=== PATIENT | female | born 1940 | race Caucasian/White ===

== ENCOUNTER → 2016-12-29 | Outpatient (CLI) | payer MEDICARE ==
--- NOTE | 2016-12-29 15:01 | WOMENS IMAGING REPORT ---
EXAM DESCRIPTION: BILAT SCREENING MAMMO W/CAD COMPLETED DATE/TIME: 12/29/2016 1:37 pm REASON FOR STUDY: Z12.31, ROUTINE SCREENING MAMMO Z12.31 ENCNTR SCREEN MAMMOGRAM FOR MALIGNANT NEOP LASM OF ADELE COMPARISON: Annual priors dating back to June 2011. TECHNIQUE: Standard craniocaudal and mediolateral oblique views of each breast recorded using digita l acquisition. LIMITATIONS: None. FINDINGS: No masses, calcifications or architectural distortion. No areas of suspicion. Read with the assistance of CAD. .[facility] - R2 Cenova Version 1.3 .[facility] Imaging - R2 Cenova Version 1.3 .[facility] Imaging - R2 Cenova Version 2.4 .[facility] - R2 Cenova Version 2.4 .[facility] - R2 Cut File Clerk Version 9.2 IMPRESSION: NORMAL MAMMOGRAM. BIRADS 1. BREAST DENSITY: b. There are scattered areas of fibroglandular density. BIRAD: 1 NEGATIVE RECOMMENDATION: ROUTINE SCREENING COMMENT: The patient has been notified of the results by letter per MQSA requirements. Additional no tification policies are in place for contacting patient with suspicious or incomplete findings. Quality ID #225: The [employer] recommends an annual screening mammogram for women aged 40 years or over. This facility utilizes a reminder system to ensure that all patients receive reminder letters, and/or direct phone calls for appointments. This includes reminders for routine scr eening mammograms, diagnostic mammograms, or other Breast Imaging Interventions when appropriate. Th is patient will be placed in the appropriate reminder system. The [employer] (ACR) has developed recommendations for screening MRI of the breast s in certain patient populations, to be used in conjunction with mammography. Breast MRI surveillanc e may be appropriate for women with more than 20% lifetime risk of developing breast cancer as deter mined by genetic testing, significant family history of the disease, or history of mantle radiation f or Hodgkins Disease. ACR Practice Guidelines 2008. TECHNICAL DOCUMENTATION: FINDING NUMBER: (1) ASSESSMENT: (1) JOB ID: [id number] [employer]- All Rights Reserved
== END ==
LOC: WI 13:16
PROVIDERS: ATTEND Family Medicine
DX: Z12.31 Encounter for screening mammogram for malignant neoplasm of breast (principal)
CPT/HCPCS: 77067; G0202

== ENCOUNTER → 2018-01-05 | Outpatient (CLI) | payer MEDICARE, OTHER ==
--- NOTE | 2018-01-08 08:52 | WOMENS IMAGING REPORT ---
EXAM DESCRIPTION: 3D SCREENING MAMMO BILAT COMPLETED DATE/TIME: 01/05/2018 1:37 pm REASON FOR STUDY: BILATERAL SCREENING MAMM 3D/Z12.31 Z12.31 ENCNTR SCREEN MAMMOGRAM FOR MALIGNANT N EOPLASM OF ADELE COMPARISON: 2006 to 2016 TECHNIQUE: Standard craniocaudal and mediolateral oblique views of each breast recorded using digita l acquisition and breast tomosynthesis. LIMITATIONS: None. FINDINGS: No masses, calcifications or architectural distortion. No areas of suspicion. Read with the assistance of CAD. .[facility] - R2 Cenova Version 1.3 .[facility] Imaging - R2 Cenova Version 1.3 .[facility] Imaging - R2 Cenova Version 2.4 .[facility] - R2 Cenova Version 2.4 .[facility] - R2 Analytical Research Program Manager Version 9.2 IMPRESSION: NORMAL MAMMOGRAM. BIRADS 1. BREAST DENSITY: b. There are scattered areas of fibroglandular density. BIRAD: 1 NEGATIVE RECOMMENDATION: ROUTINE SCREENING COMMENT: The patient has been notified of the results by letter per SA requirements. Additional no tification policies are in place for contacting patient with suspicious or incomplete findings. Quality ID #225: The [employer] recommends an annual screening mammogram for women aged 40 years or over. This facility utilizes a reminder system to ensure that all patients receive reminder letters, and/or direct phone calls for appointments. This includes reminders for routine scr eening mammograms, diagnostic mammograms, or other Breast Imaging Interventions when appropriate. Th is patient will be placed in the appropriate reminder system. The [employer] (ACR) has developed recommendations for screening MRI of the breast s in certain patient populations, to be used in conjunction with mammography. Breast MRI surveillanc e may be appropriate for women with more than 20% lifetime risk of developing breast cancer as deter mined by genetic testing, significant family history of the disease, or history of mantle radiation f or Hodgkins Disease. ACR Practice Guidelines 2008. DBT Technology DBT is a type of tomographic mammography. With conventional mammography, overlapping breast tissue ma y make lesions difficult to detect, even with good compression. DBT uses an x-ray tube that rotates a round the breast, taking images at different angles. These images are then combined to create thin sl ices of the breast that the radiologist can view as a 3D reconstruction. The [employer] unit can perform full-field digital mammograms (2D imaging); or DBT (3D imaging); or both, in a combination mode that quickly performs both the mammogram and the tomosynthesis scan while the breast is still compressed. PQRS 6045F: Fluoroscopic imaging is not utilized for breast tomosynthesis. TECHNICAL DOCUMENTATION: FINDING NUMBER: (1) ASSESSMENT: (1) JOB ID: [id number] [employer]- All Rights Reserved Reading location - IP/workstation name: [email or web address]
== END ==
LOC: WI 13:00
PROVIDERS: ATTEND Physician Assistant
DX: Z12.31 Encounter for screening mammogram for malignant neoplasm of breast (principal)
CPT/HCPCS: 77063; 77067

== ENCOUNTER 2018-08-21 10:24 | Emergency (ER) | payer MEDICARE, OTHER ==
[2018-08-21 12:06] LABS: ABSOLUTE BASOPHILS # (AUTO) 0.1 10^3/uL (0.0-0.2); ABSOLUTE EOSINOPHILS # (AUTO) 0.1 10^3/uL (0.0-0.6); ABSOLUTE LYMPHOCYTES (AUTO) 0.7 10^3/uL (0.5-4.7); ABSOLUTE MONOCYTES (AUTO) 0.6 10^3/uL (0.1-1.4); ABSOLUTE NEUT (AUTO) 8.3 10^3/uL (1.7-8.2); BASOPHILS % (AUTO) 0.7 % (0-2); EOSINOPHILS % (AUTO) 1.1 % (0-6); HEMOGLOBIN 15.2 g/dL (12.0-15.5); LYMPHOCYTES % (AUTO) 7.4 % (13-45); MEAN CORPUSCULAR HEMOGLOBIN 29.4 pg (27.0-33.4); MEAN CORPUSCULAR HGB CONC 33.7 g/dL (32.0-36.0); MEAN CORPUSCULAR VOLUME 87 fl (80-97); MONOCYTES % (AUTO) 6.4 % (3-13); PLATELET COUNT 217 10^3/uL (150-450); RED BLOOD COUNT 5.16 10^6/uL (3.72-5.28); SEGMENTED NEUTROPHILS % (AUTO) 84.4 % (42-78); TOTAL CELLS COUNTED % (AUTO) 100 %; WHITE BLOOD COUNT 9.8 10^3/uL (4.0-10.5)
[2018-08-21 12:14] LABS: INTERNATIONAL RATION (INR) 0.94
[2018-08-21 12:15] LABS: PARTIAL THROMBOPLASTIN TIME 28.9 SEC (23.5-35.8)
[2018-08-21 12:17] LABS: AMORPHOUS SEDIMENT,URINE TRACE /HPF; APPEARANCE,URINE TURBID; BILIRUBIN,URINE NEGATIVE (NEGATIVE); GLUCOSE, URINE NEGATIVE (NEGATIVE); KETONES,URINE NEGATIVE (NEGATIVE); LEUKOCYTE ESTERASE,URINE NEGATIVE (NEGATIVE); NITRITE,URINE NEGATIVE (NEGATIVE); PROTEIN,URINE NEGATIVE (NEGATIVE); URINE SPECIFIC GRAVITY 1.024; UROBILINOGEN,URINE NEGATIVE mg/dL (<2.0)
[2018-08-21 12:19] LABS: COLOR,URINE YELLOW
[2018-08-21 12:34] LABS: ALANINE AMINOTRANSFERASE 36 U/L (9-52); ALBUMIN 4.4 g/dL (3.5-5.0); ALKALINE PHOSPHATASE 92 U/L (38-126); ANION GAP 10 (5-19); ASPARTATE AMINO TRANSFERASE 32 U/L (14-36); BILIRUBIN,DIRECT 0.1 mg/dL (0.0-0.4); BILIRUBIN,TOTAL 0.4 mg/dL (0.2-1.3); BLOOD UREA NITROGEN 18 mg/dL (7-20); CALCIUM 9.7 mg/dL (8.4-10.2); CARBON DIOXIDE 29 mmol/L (22-30); CHLORIDE 104 mmol/L (98-107); GLUCOSE 90 mg/dL (75-110); POTASSIUM 4.9 mmol/L (3.6-5.0); SODIUM 142.8 mmol/L (137-145); TOTAL PROTEIN 7.1 g/dL (6.3-8.2)
--- NOTE | 2018-08-21 13:33 | RADIOLOGY REPORT (SQ) ---
EXAM DESCRIPTION: CT HEAD WITHOUT COMPLETED DATE/TIME: 08/21/2018 1:15 pm REASON FOR STUDY: fall, hit head and ribs COMPARISON: None. TECHNIQUE: Axial images acquired through the brain without intravenous contrast. Images reviewed wi th bone, brain and subdural windows. Additional sagittal and coronal reconstructions were generated. Images stored on PACS. All CT scanners at this facility use dose modulation, iterative reconstruction, and/or weight based d osing when appropriate to reduce radiation dose to as low as reasonably achievable (ALARA). [facility]: Dose Right [facility]: CareDose [facility]: Dose Right [facility]: Teradose 4D [facility]: Smart [employer] RADIATION DOSE: CT Rad equipment meets quality standard of care and radiation dose reduction techniq ues were employed. CTDIvol: 53.2 mGy. DLP: 964 mGy-cm. mGy. LIMITATIONS: None. FINDINGS: VENTRICLES: Prominent. CEREBRUM: No masses. No hemorrhage. No midline shift. Areas of low density in the white matter mos t likely due to chronic micro-vascular ischemic change. No evidence for acute infarction. CEREBELLUM: No masses. No hemorrhage. No alteration of density. No evidence for acute infarction. EXTRAAXIAL SPACES: No fluid collections. Subcentimeter calcified meningioma right frontal lobe. ORBITS AND GLOBE: No intra- or extraconal masses. Normal contour of globe without masses. CALVARIUM: No fracture. PARANASAL SINUSES: No fluid or mucosal thickening. SOFT TISSUES: No mass or hematoma. OTHER: No other significant finding. IMPRESSION: MILD CHRONIC CHANGES OF ATROPHY AND MICROVASCULAR ISCHEMIA. NO ACUTE PROCESS. EVIDENCE OF ACUTE STROKE: NO. TECHNICAL DOCUMENTATION: JOB ID: [id number] Quality ID # 436: Final reports with documentation of one or more dose reduction techniques (e.g., Au tomated exposure control, adjustment of the mA and/or kV according to patient size, use of iterative reconstruction technique) 2010 [employer]- All Rights Reserved Reading location - IP/workstation name: [email or web address]
--- NOTE | 2018-08-21 13:35 | RADIOLOGY REPORT (SQ) ---
EXAM DESCRIPTION: CT CERVICAL SPINE WITHOUT COMPLETED DATE/TIME: 08/21/2018 1:15 pm REASON FOR STUDY: fall, hit head and ribs COMPARISON: None. TECHNIQUE: Axial images acquired through the cervical spine without intravenous contrast. Images re viewed with lung, soft tissue and bone windows. Reconstructed coronal and sagittal MPR images review ed. Images stored on PACS. All CT scanners at this facility use dose modulation, iterative reconstruction, and/or weight based d osing when appropriate to reduce radiation dose to as low as reasonably achievable (ALARA). [facility]: Dose Right [facility]: CareDose [facility]: Dose Right [facility]: Teradose 4D [facility]: Smart [employer]perts RADIATION DOSE: CT Rad equipment meets quality standard of care and radiation dose reduction techniq ues were employed. CTDIvol: 11.1 mGy. DLP: 209 mGy-cm. mGy. LIMITATIONS: None. FINDINGS: ALIGNMENT: Grade 1 anterolisthesis C4 relative to C5. MINERALIZATION: Normal. VERTEBRAL BODIES: No fractures or dislocation. DISCS: Multilevel disc space narrowing with osteophytes. FACETS, LATERAL MASSES, POSTERIOR ELEMENTS: Facet arthropathy. No fractures. No dislocation. No ac [place] findings. HARDWARE: None in the spine. VISUALIZED RIBS: No fractures. LUNG APICES AND SOFT TISSUES: No significant or acute findings. OTHER: No other significant finding. IMPRESSION: CHRONIC DEGENERATIVE CHANGES. NO ACUTE FINDINGS. TECHNICAL DOCUMENTATION: JOB ID: [id number] Quality ID # [id number]: Final reports with documentation of one or more dose reduction techniques (e.g., Au tomated exposure control, adjustment of the mA and/or kV according to patient size, use of iterative reconstruction technique) 2010 [employer]- All Rights Reserved Reading location - IP/workstation name: [email or web address]
--- NOTE | 2018-08-21 13:38 | RADIOLOGY REPORT (SQ) ---
EXAM DESCRIPTION: CT CHEST WITH COMPLETED DATE/TIME: 08/21/2018 1:15 pm REASON FOR STUDY: fall, hit head and ribs COMPARISON: None. TECHNIQUE: CT scan of the chest performed using helical scanning technique with dynamic intravenous contrast injection. Images reviewed with lung, soft tissue and bone windows. Reconstructed coronal and sagittal MPR and MIP images reviewed. All images stored on PACS. All CT scanners at this facility use dose modulation, iterative reconstruction, and/or weight based d osing when appropriate to reduce radiation dose to as low as reasonably achievable (ALARA). [facility]: Dose Right [facility]: CareDose [facility]: Dose Right [facility]: Teradose 4D [facility]: Smart [employer] CONTRAST TYPE AND DOSE: See separate report of the same date. RENAL FUNCTION: See separate report of the same date. RADIATION DOSE: CT Rad equipment meets quality standard of care and radiation dose reduction techniq ues were employed. CTDIvol: 6.3 - 8.8 mGy. DLP: 935 mGy-cm. . LIMITATIONS: Artifact from left shoulder arthroplasty. FINDINGS: LUNGS AND PLEURA: No opacities, nodules, masses. No pneumothorax. No effusions. HILAR AND MEDIASTINAL STRUCTURES: No identified masses or abnormal nodes. HEART AND VASCULAR STRUCTURES: No aneurysm or dissection. No central pulmonary emboli. No pericardi al effusion. HARDWARE: None in the chest. UPPER ABDOMEN: See separate report of the CT of the abdomen. THYROID AND OTHER SOFT TISSUES: No masses. No adenopathy. BONES: Nothing acute. OTHER: No other significant finding. IMPRESSION: No acute findings in the chest. TECHNICAL DOCUMENTATION: JOB ID: [id number] Quality ID # [id number]: Final reports with documentation of one or more dose reduction techniques (e.g., Au tomated exposure control, adjustment of the mA and/or kV according to patient size, use of iterative reconstruction technique) 2010 [employer]- All Rights Reserved Reading location - IP/workstation name: [email or web address]
--- NOTE | 2018-08-21 13:48 | RADIOLOGY REPORT (SQ) ---
EXAM DESCRIPTION: CT ABD/PELVIS WITH IV ONLY COMPLETED DATE/TIME: 08/21/2018 1:15 pm REASON FOR STUDY: fall, hit head and ribs, pain over spleen COMPARISON: None. TECHNIQUE: CT scan of the abdomen and pelvis performed using helical scanning technique with dynamic intravenous contrast injection. No oral contrast. Images reviewed with lung, soft tissue, and bone windows. Reconstructed coronal and sagittal MPR images reviewed. Delayed images for evaluation of the urinary system also acquired. All images stored on PACS. All CT scanners at this facility use dose modulation, iterative reconstruction, and/or weight based d osing when appropriate to reduce radiation dose to as low as reasonably achievable (ALARA). [facility]: Dose Right [facility]: CareDose [facility]: Dose Right [facility]: Teradose 4D [facility]: [employer] CONTRAST TYPE AND DOSE: See separate report of the same date RENAL FUNCTION: See separate report of the same date RADIATION DOSE: . LIMITATIONS: None. FINDINGS: LOWER CHEST: See separate report of the CT of the chest. LIVER: Normal size. No masses. No dilated ducts. SPLEEN: Normal size. No focal lesions. PANCREAS: No masses. No significant calcifications. No adjacent inflammation or peripancreatic fluid collections. Pancreatic duct not dilated. GALLBLADDER: No identified stones by CT criteria. No inflammatory changes to suggest cholecystitis. ADRENAL GLANDS: No significant masses or asymmetry. RIGHT KIDNEY AND URETER: No solid masses. No significant calcifications. No hydronephrosis or hyd roureter. LEFT KIDNEY AND URETER: No solid masses. No significant calcifications. No hydronephrosis or hydr oureter. AORTA AND VESSELS: No aneurysm. RETROPERITONEUM: No retroperitoneal adenopathy, hemorrhage or masses. BOWEL AND PERITONEAL CAVITY: No masses or inflammatory changes. No free fluid or peritoneal masses. APPENDIX: Normal. PELVIS: No mass. No free fluid. Normal bladder. ABDOMINAL WALL: No masses. No hernias. BONES: Nothing acute. OTHER: No other significant finding. IMPRESSION: No acute findings in the abdomen or pelvis. TECHNICAL DOCUMENTATION: JOB ID: [id number] Quality ID # [id number]: Final reports with documentation of one or more dose reduction techniques (e.g., Au tomated exposure control, adjustment of the mA and/or kV according to patient size, use of iterative reconstruction technique) 2010 [employer]- All Rights Reserved Reading location - IP/workstation name: [email or web address]
--- NOTE | 2018-08-21 14:03 | ER Document Report ---
Entered by TREY NICHOLS SCRIBE 08/21/18 1133 Acting as scribe for:ELI GORDON DO ED Medical Screen (RME) - General Chief Complaint: Fall Stated Complaint: FALL Time Seen by Provider: 08/21/18 11:12 Primary Care Provider: ANYI GREEN PA [Primary Care Provider] - Follow up as needed Mode of Arrival: Ambulatory Information source: Patient Notes: Patient is an 78-year-old female presenting to the emergency department complaining of left rib pain secondary a mechanical trip and fall onset yesterday. Patient states that she was outside when she fell backwards off a single step step. She states she proceeded to her left ribs and the left side of her head. She states her rib pain is exacerbated with breathing and movement. She denies any loss of conscious, blurry vision, vomiting, or confusion. I have greeted and performed a rapid initial assessment of the patient. A comprehensive ED assessment and evaluation of the patient, analysis of test results, and completion of the medical decision making process will be conducted by additional ED providers. GENERAL: Alert, interacts well. No acute distress. HEAD: Normocephalic, 3 cm Hematoma and ecchymoses on the left parietal scalp which is tender to palpation, no step-offs or deformities.Superficial abrasion hematoma to the left side of the forehead. EYES: Pupils equal, round, and reactive to light. Extraocular movements intact. ENT: Oral mucosa moist, tongue midline. NECK: Full range of motion. Supple. Trachea midline. LUNGS: Clear to auscultation bilaterally, no wheezes, rales, or rhonchi. No respiratory distress .Left posterior humeral head is tender to palpation. Left posterior clavicular line, approximately ribs 4 through 8 is tender to palpation. Left midclavicular line to approximately rib 12 is tender to palpation. HEART: Regular rate and rhythm. No murmurs, gallops, or rubs. EXTREMITIES: Moves all 4 extremities spontaneously. NEUROLOGICAL: Alert and oriented x3. Normal speech. PSYCH: Normal affect, normal mood. SKIN: Warm, dry, normal turgor. No rashes or lesions noted. CT scan of head and cervical spine were ordered based off of patient's age. Cannot be excluded due to the fact that she is greater than 65 years old. TRAVEL OUTSIDE OF THE [place] IN LAST 30 DAYS: No - Related Data Allergies/Adverse Reactions: No Known Allergies Allergy (Verified 08/21/18 10:26) Past Medical History - Social History Chew tobacco use (# tins/day): No Frequency of alcohol use: None Drug Abuse: None - Past Medical History Cardiac Medical History: Reports: Hx Hypercholesterolemia Neurological Medical History: Reports: Hx Seizures Renal/ Medical History: Denies: Hx Peritoneal Dialysis Past Surgical History: Reports: Hx Orthopedic Surgery - left shoulder, L knee - Immunizations Hx Diphtheria, Pertussis, Tetanus Vaccination: - unknown thinks <7 years Physical Exam - Vital signs Vitals: Temp Pulse Resp BP Pulse Ox 97.6 F 69 14 122/67 95 08/21/18 10:40 08/21/18 10:40 08/21/18 10:40 08/21/18 10:40 08/21/18 10:40 Course - Vital Signs Vital signs: Temp Pulse Resp BP Pulse Ox 97.6 F 69 14 122/67 95 08/21/18 10:40 08/21/18 10:40 08/21/18 10:40 08/21/18 10:40 08/21/18 10:40 - Laboratory Result Diagrams: 08/21/18 11:29 08/21/18 11:29 Laboratory results interpreted by me: 08/21/18 08/21/18 11:29 11:50 RDW 15.0 H Seg Neutrophils % 84.4 H Lymphocytes % 7.4 L Absolute Neutrophils 8.3 H Urine Ascorbic Acid 40 H Doctor's Discharge - Discharge Referrals: ANYI GREEN PA [Primary Care Provider] - Follow up as needed I personally performed the services described in the documentation, reviewed and edited the documentation which was dictated to the scribe in my presence, and it accurately records my words and actions.
[2018-08-21] MEDS ORDERED: MORPHINE SULFATE 10 MG/ML INJ IV ONE (14:35)
[2018-08-21] MEDS ORDERED: ONDANSETRON HCL INJ/PF 4 MG/2 ML SDV IV ONE (14:35)
[2018-08-21] MEDS ORDERED: KETOROLAC TROMETHAMINE INJ/PF 30 MG/1 ML SDV IV ONE (14:36)
[2018-08-21] MEDS ORDERED: HYDROCODONE/ACETAMINOPHEN 5-325 MG (6 TAB/ER DISP) PO PRN (14:38)
--- NOTE | 2018-08-21 14:41 | ER Document Report ---
ED General - General Chief Complaint: Fall Stated Complaint: FALL Time Seen by Provider: 08/21/18 11:12 Primary Care Provider: ANYI GREEN PA [PHYSICIAN B[employer] M[employer] OPERATOR [employer]] - Follow up as needed Mode of Arrival: Ambulatory Information source: Patient, [facility] Records Notes: 78-year-old female with hyperlipidemia presents after a trip and fall that occurred 2 days prior to arrival. Patient currently complaining of left-sided rib pain, mild headache. Patient states that she stepped backwards off of a step causing her to fall onto her left side while she was raking leaves. She denies loss of consciousness, preceding shortness of breath, chest pain or dizziness. She is not on any anticoagulant. Patient describes the pain as throbbing, worse with movement and deep breathing. She has not tried any medication for this but states that she has iced once since the fall. Patient denies changes in vision, nausea, vomiting, difficulty with ambulation. TRAVEL OUTSIDE OF THE [place] IN LAST 30 DAYS: No - HPI Onset: Other Onset/Duration: Persistent Quality of pain: Throbbing Severity: Moderate Associated symptoms: Headache, Hurts to breath. denies: Chest pain, Nonproductive cough, Productive cough, Nausea, Vomiting, Shortness of breath Exacerbated by: Movement, Deep breathing Relieved by: Denies Similar symptoms previously: No Recently seen / treated by doctor: No - Related Data Allergies/Adverse Reactions: No Known Allergies Allergy (Verified 08/21/18 10:26) Past Medical History - General Information source: Patient - Social History Smoking Status: Former Smoker Chew tobacco use (# tins/day): No Frequency of alcohol use: None Drug Abuse: None Lives with: Alone Family History: Reviewed & Not Pertinent, Other Patient has suicidal ideation: No Patient has homicidal ideation: No - Past Medical History Cardiac Medical History: Reports: Hx Hypercholesterolemia Neurological Medical History: Reports: Hx Seizures Renal/ Medical History: Denies: Hx Peritoneal Dialysis Past Surgical History: Reports: Hx Orthopedic Surgery - left shoulder, L knee - Immunizations Hx Diphtheria, Pertussis, Tetanus Vaccination: - unknown thinks <7 years Review of Systems - Review of Systems Notes: REVIEW OF SYSTEMS: CONSTITUTIONAL : Denies fever, chills, or sweats. Denies recent illness. Denies weight loss, recent hospitalizations. EENT: Denies visual changes, eye pain. Denies sore throat, oral lesions, difficulty swallowing. CARDIOVASCULAR: Denies chest pain. Denies palpitations. Denies lower extremity edema. RESPIRATORY: Denies cough. Denies shortness of breath, wheezing. GASTROINTESTINAL: Denies abdominal pain or distention. Denies nausea, vomiting, or diarrhea. Denies blood in vomitus, stools, or per rectum. Denies black, tarry stools. Denies constipation. GENITOURINARY: Denies difficulty urinating, painful urination, frequency, blood in urine, or vaginal discharge. MUSCULOSKELETAL: Denies back or neck pain or stiffness. SKIN: Denies rash, lesions or sores. HEMATOLOGIC : Denies easy bruising or bleeding. LYMPHATIC: Denies swollen glands. NEUROLOGICAL: Denies confusion or altered mental status. Denies loss of con sciousness. Denies dizziness or lightheadedness. Denies headache. Denies weakness or paralysis. Denies problems difficulty with ambulation, slurred speech. Denies sensory loss, numbness, or tingling. Denies seizures. PSYCHIATRIC: Denies anxiety or stress. Denies depression, suicidal ideation, or homicidal ideation. Denies visual or auditory hallucinations. Physical Exam - Vital signs Vitals: Temp Pulse Resp BP Pulse Ox 97.6 F 69 14 122/67 95 08/21/18 10:40 08/21/18 10:40 08/21/18 10:40 08/21/18 10:40 08/21/18 10:40 - Notes Notes: PHYSICAL EXAMINATION: GENERAL: Well-appearing, well-nourished and in no acute distress. GCS 15 HEAD: Small superficial abrasion on the left side of her forehead. EYES: Pupils equal round and reactive to light, extraocular movements intact, sclera anicteric, conjunctiva are normal. ENT: Nares patent, oropharynx clear without exudates. Moist mucous membranes. No hemanotympanum . No blood in nares. No dental fracture. No malocclusion. Midface stable. NECK: Normal range of motion, supple without lymphadenopathy. Trachea midline. No midline tenderness of the cervical spine. LUNGS: Breath sounds clear to auscultation bilaterally and equal. No wheezes rales or rhonchi. HEART: Regular rate and rhythm without murmurs. Pulses intact all throughout. ABDOMEN: Soft, nontender, nondistended abdomen. No guarding, no rebound. No masses appreciated. Musculoskeletal: Normal range of motion, no pitting or edema. No cyanosis. Hip non tender, stable. No midline tenderness of the thoracic or lumbar spine. NEUROLOGICAL: Cranial nerves grossly intact. Normal speech, normal gait. Normal sensory, motor, and reflex exams. PSYCH: Normal mood, normal affect. SKIN: Small abrasion of the forehead Course - Re-evaluation Re-evalutation: 08/21/18 14:38 Laboratory 08/21/18 08/21/18 08/21/18 11:29 11:29 11:29 WBC 9.8 RBC 5.16 Hgb 15.2 Hct 45.0 MCV 87 MCH 29.4 MCHC 33.7 RDW 15.0 H Plt Count 217 Seg Neutrophils % 84.4 H Lymphocytes % 7.4 L Monocytes % 6.4 Eosinophils % 1.1 Basophils % 0.7 Absolute Neutrophils 8.3 H Absolute Lymphocytes 0.7 Absolute Monocytes 0.6 Absolute Eosinophils 0.1 Absolute Basophils 0.1 PT 13.0 INR 0.94 APTT 28.9 Sodium 142.8 Potassium 4.9 Chloride 104 Carbon Dioxide 29 Anion Gap 10 BUN 18 Creatinine 0.67 Est GFR ( Amer) > 60 Est GFR (Non-Af Amer) > 60 Glucose 90 Calcium 9.7 Total Bilirubin 0.4 Direct Bilirubin 0.1 Neonat Total Bilirubin Not Reportable Neonat Direct Bilirubin Not Reportable Neonat Indirect Bili Not Reportable AST 32 ALT 36 Alkaline Phosphatase 92 Total Protein 7.1 Albumin 4.4 Urine Color Urine Appearance Urine pH Ur Specific [place] Urine Protein Urine Glucose (UA) Urine Ketones Urine Blood Urine Nitrite Urine Bilirubin Urine Urobilinogen Ur Leukocyte Esterase Urine WBC (Auto) Urine RBC (Auto) Urine Bacteria (Auto) Amorphous Sediment Auto Urine Mucus (Auto) Urine Ascorbic Acid 08/21/18 11:50 WBC RBC Hgb Hct MCV MCH MCHC RDW Plt Count Seg Neutrophils % Lymphocytes % Monocytes % Eosinophils % Basophils % Absolute Neutrophils Absolute Lymphocytes Absolute Monocytes Absolute Eosinophils Absolute Basophils PT INR APTT Sodium Potassium Chloride Carbon Dioxide Anion Gap BUN Creatinine Est GFR ( Amer) Est GFR (Non-Af Amer) Glucose Calcium Total Bilirubin Direct Bilirubin Neonat Total Bilirubin Neonat Direct Bilirubin Neonat Indirect Bili AST ALT Alkaline Phosphatase Total Protein Albumin Urine Color YELLOW Urine Appearance TURBID Urine pH 7.0 Ur Specific [place] 1.024 Urine Protein NEGATIVE Urine Glucose (UA) NEGATIVE Urine Ketones NEGATIVE Urine Blood NEGATIVE Urine Nitrite NEGATIVE Urine Bilirubin NEGATIVE Urine Urobilinogen NEGATIVE Ur Leukocyte Esterase NEGATIVE Urine WBC (Auto) 5 Urine RBC (Auto) 1 Urine Bacteria (Auto) TRACE Amorphous Sediment Auto TRACE Urine Mucus (Auto) RARE Urine Ascorbic Acid 40 H Abdomen/Pelvis CT 08/21/18 11:22 IMPRESSION: No acute findings in the abdomen or pelvis. Cervical Spine CT 08/21/18 11:22 IMPRESSION: CHRONIC DEGENERATIVE CHANGES. NO ACUTE FINDINGS. Chest CT 08/21/18 11:22 IMPRESSION: No acute findings in the chest. Head CT 08/21/18 11:22 IMPRESSION: MILD CHRONIC CHANGES OF ATROPHY AND MICROVASCULAR ISCHEMIA. NO ACUTE PROCESS. EVIDENCE OF ACUTE STROKE: NO. Temp Pulse Resp BP Pulse Ox 97.6 F 69 14 122/67 95 08/21/18 10:40 08/21/18 10:40 08/21/18 10:40 08/21/18 10:40 08/21/18 10:40 Presentation of a well appearing elderly patient in no acute distress, vitals within normal limits after a mechanical fall. Patient denies a syncopal episode as the cause for today's fall. No focal neurologic deficits on exam, no ev idence of basilar skull fracture on exam without evidence of hemotympanum, raccoon eyes, or periauricular hematoma. No papilledema. Patient is not on anticoagulation. GCS is 15. No loss of consciousness. No episodes of vomiting. However, based on patient's age a CT of the head has been obtained which is negative for any acute intracranial bleed. Likewise, patient was unable to be clinically cleared due to age by [place] cervical spine criteria. A CT of the cervical spine was also obtained and likewise is negative for any acute fracture. No indication for further imaging of the cervical spine. Patient has no focal deformities or limited range of motion in any joint space. Chest and abdominal exam are benign without any focal tenderness, shortness of breath, or bruising over the chest or abdominal wall. Patient has no flank tenderness. There is no obvious findings on trauma exam today and therefore no further imaging or evaluation will be obtained at this time. At this time will discharge with return precautions and follow-up recommendations. Verbal discharge instructions given a the bedside and opportunity for questions given. Medication warnings reviewed. Patient is in agreement with this plan and has verbalized understanding of return precautions and the need for primary care follow-up in the next 24-72 hours. - Vital Signs Vital signs: Temp Pulse Resp BP Pulse Ox 97.6 F 69 14 122/67 95 08/21/18 10:40 08/21/18 10:40 08/21/18 10:40 08/21/18 10:40 08/21/18 10:40 - Laboratory Result Diagrams: 08/21/18 11:29 08/21/18 11:29 Laboratory results interpreted by me: 08/21/18 08/21/18 11:29 11:50 RDW 15.0 H Seg Neutrophils % 84.4 H Lymphocytes % 7.4 L Absolute Neutrophils 8.3 H Urine Ascorbic Acid 40 H - Diagnostic Test Radiology reviewed: Image reviewed, Reports reviewed Discharge - Discharge Clinical Impression: Contusion of rib on left side Qualifiers: Encounter type: initial encounter Qualified Code(s): S20.212A - Contusion of le ft front wall of thorax, initial encounter Fall Qualifiers: Encounter type: initial encounter Qualified Code(s): W19.XXXA - Unspecified fall, initial encounter Closed head injury Qualifiers: Encounter type: initial encounter Qualified Code(s): S09.90XA - Unspecified injury of head, initial encounter Forehead abrasion Qualifiers: Encounter type: initial encounter Qualified Code(s): S00.81XA - Abrasion of other part of head, initial encounter Condition: Good Disposition: HOME, SELF-CARE Instructions: Contusion ([facility]), Rib Contusion ([facility]), Head Injury Precautions ([facility]) Additional Instructions: You have been seen in the Emergency Department (ED) today following a fall. Your workup today did not reveal any injuries that require you to stay in the hospital. You can expect, though, to be stiff and sore for the next several days. You can take Tylenol 1000 mg every 6 hours as needed for pain. You can apply a hot pack or electric heating pad to the sore areas. You can also use topical "Aspercreme with lidocaine" to sore areas as needed. Please follow up with your primary care doctor as soon as possible regarding today's ED visit and your recent fall. Call your doctor or return to the ED if you develop a sudden or severe headache, confusion, slurred speech, facial droop, weakness or numbness in any arm or leg, extreme fatigue, vomiting more than two times, severe abdominal pain, or other symptoms that concern you. You have likely sustained a contusion (bruise) to your head. If you had a CT scan done, it did not show any evidence of serious injury or bleeding. Symptoms to expect from a concussion include nausea, mild to moderate headache, dif ficulty concentrating or sleeping, and mild lightheadedness. These symptoms should improve over the next few days to weeks. Return to the emergency department or follow-up with your primary care doctor if your symptoms are not improving over this time. Signs of a more serious head injury include vomiting, severe headache, excessive sleepiness or confusion, and weakness or numbness in your face, arms or legs. Return immediately to the Emergency Department if you experience any of these more concerning symptoms. Rest, avoid strenuous physical or mental activity, and avoid activities that could potentially result in another head injury until all your symptoms from this head injury are comp letely resolved for at least 2-3 weeks. If you participate in sports, get cleared by your doctor or care trainer before returning to play. You may take ibuprofen or acetaminophen over the counter according to label instructions for mild headache or scalp soreness. Referrals: ANYI GREEN PA [PHYSICIAN B[employer] MILL OPERATOR FOR PLASTIC] - Follow up as needed
[2018-08-21 15:13] VITALS: BP 150/72
== END 2018-08-21 15:33 | disposition home or self-care (01) ==
LOC: ER 10:24
DX: S20.212A Contusion of left front wall of thorax, initial encounter (principal); S00.81XA Abrasion of other part of head, initial encounter; R51 Headache; R07.81 Pleurodynia; W10.8XXA Fall (on) (from) other stairs and steps, initial encounter; Y93.H1 Activity, digging, shoveling and raking; M47.9 Spondylosis, unspecified; Z87.891 Personal history of nicotine dependence
CPT/HCPCS: 99284; 96374; 96375; 36415; 85025; 85610; 85730; 80053; 81001; 70450; 71260; 72125; 74177; J1885; J2270; J2405; A9270

== ENCOUNTER → 2019-11-18 | Outpatient (CLI) | payer MEDICARE, OTHER ==
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
== END ==
LOC: SP 13:39
PROVIDERS: ATTEND Physician Assistant Medical
DX: R60.0 Localized edema (principal)
CPT/HCPCS: 93971

== ENCOUNTER 2019-12-02 16:13 | Emergency (ER) | payer OTHER, MEDICARE ==
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
[2019-12-02 17:08] LABS: ABSOLUTE EOSINOPHILS # (AUTO) 0.1 10^3/uL (0.0-0.6); ABSOLUTE MONOCYTES (AUTO) 0.4 10^3/uL (0.1-1.4); ABSOLUTE NEUT (AUTO) 7.9 10^3/uL (1.7-8.2); BASOPHILS % (AUTO) 0.3 % (0-2); EOSINOPHILS % (AUTO) 0.9 % (0-6); HEMATOCRIT 45.4 % (36.0-47.0); HEMOGLOBIN 15.4 g/dL (12.0-15.5); LYMPHOCYTES % (AUTO) 10.5 % (13-45); MEAN CORPUSCULAR HEMOGLOBIN 31.3 pg (27.0-33.4); MEAN CORPUSCULAR HGB CONC 33.9 g/dL (32.0-36.0); MEAN CORPUSCULAR VOLUME 92 fl (80-97); MONOCYTES % (AUTO) 4.6 % (3-13); PLATELET COUNT 199 10^3/uL (150-450); RED BLOOD COUNT 4.91 10^6/uL (3.72-5.28); RED CELL DISTRIBUTION WIDTH 13.3 % (11.5-14.0); SEGMENTED NEUTROPHILS % (AUTO) 83.7 % (42-78); TOTAL CELLS COUNTED % (AUTO) 100 %; WHITE BLOOD COUNT 9.4 10^3/uL (4.0-10.5)
[2019-12-02 17:17] LABS: PARTIAL THROMBOPLASTIN TIME 31.2 SEC (23.5-35.8); PROTHROMBIN TIME 13.2 SEC (11.4-15.4)
[2019-12-02 17:27] LABS: ALBUMIN 4.4 g/dL (3.5-5.0); ALKALINE PHOSPHATASE 83 U/L (38-126); ANION GAP 6 (5-19); ASPARTATE AMINO TRANSFERASE 48 U/L (14-36); BILIRUBIN,TOTAL 0.5 mg/dL (0.2-1.3); BLOOD UREA NITROGEN 18 mg/dL (7-20); CALCIUM 9.4 mg/dL (8.4-10.2); CARBON DIOXIDE 29 mmol/L (22-30); CHLORIDE 101 mmol/L (98-107); GLUCOSE 114 mg/dL (75-110); POTASSIUM 4.2 mmol/L (3.6-5.0)
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
[2019-12-02] MEDS ORDERED: FENTANYL CITRATE INJ/PF 100 MCG/2 ML AMPUL IV ONE (18:28)
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
--- NOTE | 2019-12-02 20:03 | EKG REPORT ---
SEVERITY:- NORMAL ECG - SINUS RHYTHM : Confirmed by: Lei Enamorado MD 02-Dec-2019 20:02:42
[2019-12-02] MEDS ORDERED: OXYCODONE-ACETAMINOPHEN 5-325 MG TABLET PO ONE (21:40)
[2019-12-02 22:28] VITALS: BP 134/70
== END 2019-12-02 22:49 | disposition home or self-care (01) ==
LOC: ER 16:13
DX: S13.4XXA Sprain of ligaments of cervical spine, initial encounter (principal); S20.219A Contusion of unspecified front wall of thorax, initial encounter; R07.89 Other chest pain; M25.512 Pain in left shoulder; M54.9 Dorsalgia, unspecified; V87.7XXA Person injured in collision between other specified motor vehicles (traffic), initial encounter
CPT/HCPCS: 93005; 99284; 96374; 36415; 85025; 85610; 85730; 80053; 84484; 71046; 73000; 73502; 71260; 72125; 74177; 93010; J3010

== ENCOUNTER → 2020-01-23 | Outpatient (CLI) | payer MEDICARE, OTHER ==
--- NOTE | 2020-01-23 13:29 | WOMENS IMAGING REPORT ---
EXAM DESCRIPTION: BILAT SCREENING MAMMO W/CAD IMAGES COMPLETED DATE/TIME: 01/23/2020 11:16 am REASON FOR STUDY: ENCOUNTER FOR SCREENING MAMMO FOR MAL ULISES OF BREAST Z12.31 ENCNTR SCREEN MAMMOGRA M FOR MALIGNANT NEOPLASM OF A[place] COMPARISON: 01/15/2019, 01/05/2018, 12/29/2016 EXAM PARAMETERS: Standard craniocaudal and mediolateral oblique views of each breast recorded using digital acquisition. Read with the assistance of CAD. .[facility] - R2 [employer] Insert Changer Version 9.2 LIMITATIONS: None. FINDINGS: No suspicious masses, suspicious calcifications or architectural distortion. No areas of c oncern. IMPRESSION: NEGATIVE MAMMOGRAM. BIRADS 1 BREAST DENSITY: c. The breasts are heterogeneously dense, which may obscure small masses. BIRAD: ASSESSMENT: 1 NEGATIVE RECOMMENDATION: ROUTINE SCREENING COMMENT: The patient has been notified of the results by letter per MQSA requirements. Additional no tification policies are in place for contacting patient with suspicious or incomplete findings. Quality ID #225: The [employer] recommends an annual screening mammogram for women aged 40 years or over. This facility utilizes a reminder system to ensure that all patients receive reminder letters, and/or direct phone calls for appointments. This includes reminders for routine scr eening mammograms, diagnostic mammograms, or other Breast Imaging Interventions when appropriate. Th is patient will be placed in the appropriate reminder system. TECHNICAL DOCUMENTATION: FINDING NUMBER: (1) ASSESSMENT: (1) JOB ID: [id number] 2010 [employer]- All Rights Reserved Reading location - IP/workstation name: [email or web address]
== END ==
LOC: WI 10:46
PROVIDERS: ATTEND Physician Assistant Medical
DX: Z12.31 Encounter for screening mammogram for malignant neoplasm of breast (principal)
CPT/HCPCS: 77067